=== PATIENT | male | born 1955 | race Caucasian/White ===

== ENCOUNTER → 2018-02-11 11:01 | Outpatient (CLI) | payer BC, SELFPAY ==
[2018-02-11 12:56] LABS: Urine Drug scr, USCG NIDA See Separate Report
== END ==
PROVIDERS: PCP Internal Medicine; Visit Provider Internal Medicine
DX: Z02.3 Encounter for examination for recruitment to armed forces (principal)
CPT/HCPCS: 81099

== ENCOUNTER → 2018-02-13 11:51 | Outpatient (CLI) | payer BC, SELFPAY ==
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
== END ==
PROVIDERS: PCP Internal Medicine; Visit Provider Internal Medicine
DX: S99.911A Unspecified injury of right ankle, initial encounter (principal); S69.92XA Unspecified injury of left wrist, hand and finger(s), initial encounter; M79.89 Other specified soft tissue disorders; M25.471 Effusion, right ankle
CPT/HCPCS: 73130; 73610

== ENCOUNTER 2018-04-16 09:03 | Day surgery (SDC) | payer BC, SELFPAY ==
--- NOTE | 2018-04-16 | PATH_ITS ---
[facility] Accession Number: [id number] . 01 Material submitted: . SIGMOID COLON POLYP . 02 Diagnosis: Sigmoid Colon Polyp: Colonic mucosa with no diagnostic abnormality, consistent with polypoid redundancy. Negative for serrated lesion, dysplasia or malignancy. Additional step sections examined. MRV/04/18/2018 . 02 Electronically signed: . Ronny Johnson MD, PhD, Pathologist NPI- [id number] . 01 Gross description: . Received one formalin-filled container labeled with the patient's name and labeled sigmoid colon polyp. The specimen consists of a 0.3 cm portion of tissue, entirely submitted in one cassette. ([id number]) /FRR . 02 Pathologist provided ICD-10: K63.5 . 02 CPT . 028326 Performed at: 01 [facility] [address] [id number] MD John Arce MD Phone: [phone] Performed at: 02 [facility] [address] [place] [id number] MD Kaushik Breen MD Phone: [phone]
[2018-04-16] MEDS: SODIUM CHLORIDE 0.9% 1,000 ML 42 ML IV (09:16)
[2018-04-16 09:21] VITALS: BP 127/78; PULSE 61; RESP 18; TEMP 36.4; O2SAT 97; BMI 25.1
--- NOTE | 2018-04-16 09:48 | PM.HP.1 ---
History of Present Illness Date Patient Seen: 04/16/18 Time Patient Seen: 09:48 Chief complaint: [id number] Narrative: History of adenomatous colon polyps Patient History Family & Social History Social History: household members spouse Meds Allergies Allergy/AdvReac Type Severity Reaction Status Date / Time CODEINE Allergy Mild ITCHING Uncoded 04/16/18 09:15 Exam Vital Signs (past 8 hours): - 04/16/18 09:21 Temperature 97.6 F Pulse Rate 61 Respiratory Rate 18 Blood Pressure 127/78 Pulse Oximetry 97 Oxygen Delivery Method Room Air Narrative Exam Narrative: Oropharynx free of lesions Chest clear to auscultation percussion Cardiac exam reveals no S3 or murmur Assessment & Plan Plan: Assessment/Plan Narrative: Assessment: History of adenomatous colon polyps Plan: Follow-up colonoscopy. Risks benefits and alternatives have been explained.
[2018-04-16] MEDS: MIDAZOLAM 5 MG/5 ML VIAL IV (10:43)
[2018-04-16] MEDS: fentaNYL 250 MCG/5 ML INJ IV (10:44)
--- NOTE | 2018-04-16 10:49 | PM.OP.ENDO ---
Operative Date/Time/Diagnoses Date of procedure: 04/16/18 Time of procedure: 10:49 Pre-op diagnosis: See indication and findings Post-op diagnosis: same Procedure & Clinicians Study performed: Colonoscopy Same procedure as scheduled: Yes Indications: Screening Surgeon: Sorin Clark Procedure Notes Procedure in detail: Sedation: Fentanyl 100 mcg Versed 5 mg IV titration Total sedation time 20 min After informed consent was obtained the patient was placed in the left lateral decubitus position. The video colonoscope was introduced to the rectum slowly advanced to the cecum. On slow withdrawal mucosa was carefully examined. The preparation was excellent. The scope was removed. The patient tolerated the procedure well. Blood loss none Complications none Findings 1. 3-4 mm polyp in the sigmoid colon Jumbo biopsy and removed completely 2. Otherwise negative colonoscopy to cecum We will be in touch the patient regarding pathology results and how this impacts of follow-up in either 5 years or 10 years.
[2018-04-16 11:00] VITALS: BP 96/63; PULSE 60; RESP 15; TEMP 36.8; O2SAT 96
[2018-04-16 11:09] VITALS: BP 103/66; PULSE 55; RESP 15; TEMP 36.6; O2SAT 99
[2018-04-16 11:15] VITALS: BP 110/71; PULSE 63; RESP 18; O2SAT 99
--- NOTE | 2018-04-16 11:23 | SUR.PHASEII ---
pt awake and alert. pt drank 2 juices. denies any complaints. pt states he feels fine and is ready to go home. pt d/[place] in wheelchair with .
== END 2018-04-16 11:20 | disposition home or self-care (01) ==
PROVIDERS: PCP Internal Medicine; Visit Provider Internal Medicine Gastroenterology
PROC: 0DJD8ZZ Inspection of Lower Intestinal Tract, Via Natural or Artificial Opening Endoscopic (ICD-10-PCS; CPT 45378; principal; 2018-04-16 10:00)
DX: Z86.010 Personal history of colon polyps (principal); D12.5 Benign neoplasm of sigmoid colon
CPT/HCPCS: 45380; J2250; J3010

== ENCOUNTER → 2021-08-08 07:50 | Outpatient (CLI) | payer OTHER, SELFPAY ==
--- NOTE | 2021-08-08 | DI.MRI.S_ITS ---
PROCEDURE: MR LUMBAR SPINE WO CON INDICATIONS: SPINAL STENOSIS TECHNIQUE: Noncontrast sagittal T1 spin echo and T2 fast echo, sagittal STIR, axial T1 and T2 fast spin echo through the lumbar spine. In cases with scoliosis, additional coronal T2 fast spin echo may be performed. COMPARISON: [facility], CR, L-SPINE 2-3 VIEWS, 04/16/2011, 7:33. [facility], MR, L-SPINE WITHOUT CONTRAST, 04/24/2011, 16:39. FINDINGS: Image quality: Excellent. Alignment and Curvature: There is minimal retrolisthesis again seen at the L2-L3 level. Bone Marrow: Marrow is of normal overall signal. No acute vertebral body compression fractures. Spinal Cord: Conus medullaris terminates at the L1 level. Visualized cord demonstrates normal signal and size. Paraspinous Soft Tissues: No paravertebral masses. This patient has transitional lumbar anatomy. For the purposes of this examination, the level with the last well-developed disc space is considered to be L5-S1. By this numbering scheme, there are tiny vestigial ribs seen at the T12 level. The L5 level is partially sacralized. T12-L1: No significant abnormality is seen. The disc height and disc signal are relatively well preserved. Mild generalized disc bulge is seen. Moderate facet joint hypertrophy is seen. Moderate bilateral neural foraminal narrowing is seen. Moderate central canal narrowing is seen. There is mild progression of degenerative change compared to 2011. L1-L2: The disc height is well-preserved. Loss of disc signal is seen at this level. There is a focal annular fissure seen posteriorly. Moderate generalized disc bulge is seen. There is a superimposed central disc protrusion. Moderate facet joint hypertrophy is seen. Moderate bilateral neural foraminal narrowing can be seen, left worse than right. Moderate central canal narrowing is seen. When comparison is made with the prior images, these findings are similar. L2-L3: Mild loss of disc height is seen. Loss of disc signal is seen. Moderate generalized disc bulge is seen. There is a superimposed central disc protrusion. There is a focal annular fissure seen posteriorly. Moderate facet joint hypertrophy is seen. There is moderate right-sided and at least moderate left-sided neural foraminal narrowing. Moderate central canal narrowing is seen. Compared to 2011, these imaging findings are similar. L3-L4: The disc height is well-preserved. Loss of disc signal is seen at this level. Moderate generalized disc bulge is seen. There is a superimposed central disc protrusion. Moderate facet joint hypertrophy is seen. There is moderate left-sided and moderate to severe right-sided neural foraminal narrowing. There is a mild degree of compression seen upon the exiting right L3 nerve root. Moderate central canal narrowing is seen. Mild progression compared to 2011. L4-L5: The disc height is well-preserved. Loss of disc signal is seen at this level. Moderate generalized disc bulge is seen. There is a superimposed central disc protrusion. Mild to moderate facet hypertrophy is seen. There is at least moderate bilateral neural foraminal narrowing seen. Mild to moderate central canal narrowing is seen. There is slight progression of degenerative change compared to 2011. L5-S1: The disc height and disc signal are overall well preserved. Mild generalized disc bulge is seen. Moderate facet joint hypertrophy is seen. No significant neural foraminal or central canal narrowing can be seen. No significant change from the prior. IMPRESSION: Multiple levels of lumbar spine degenerative change are seen, which are overall mildly progressed compared to the prior 2011 MRI examination. Dictated by: Ck Caraballo M.D. on 08/08/2021 at 11:42 Approved by: Ck Caraballo M.D. on 08/08/2021 at 11:48
== END ==
PROVIDERS: PCP Internal Medicine; Referring Provider Internal Medicine; Visit Provider Internal Medicine
DX: M48.062 Spinal stenosis, lumbar region with neurogenic claudication (principal); M47.816 Spondylosis without myelopathy or radiculopathy, lumbar region; M47.817 Spondylosis without myelopathy or radiculopathy, lumbosacral region
CPT/HCPCS: 72148

== ENCOUNTER → 2021-11-01 08:24 | Outpatient (CLI) | payer OTHER, SELFPAY ==
--- NOTE | 2021-11-01 08:25 | DI.RAD.S_ITS ---
PROCEDURE: XR LUMBAR SPINE MIN 4V INDICATIONS: BACK PAIN TECHNIQUE: 5 views of the lumbar spine were acquired, including bilateral oblique views. COMPARISON: [facility], , -SPINE 2-3 VIEWS, 04/16/2011, 7:33. FINDINGS: Bones: 5 nonrib-bearing vertebrae are present. There is normal bony alignment. No vertebral body compression fractures. No suspicious bony lesions. Mild degenerative disc changes noted throughout the lumbar spine. Mild L3-L4, L4-L5 and L5-S1 facet arthropathy. Soft tissues: Overlying bowel gas pattern is normal. No suspicious soft tissue calcifications. Oblique images: No pars defects. IMPRESSION: 1. Multilevel degenerative disc disease. 2. Multilevel facet arthropathy. 3. No fracture. No acute osseous lesion. If symptoms and/or clinical suspicion for pathology persists, evaluation with MRI should be considered for further assessment. Dictated by: Erika Lundberg MD, PhD on 11/01/2021 at 9:05 Approved by: Erika Lundberg MD, PhD on 11/01/2021 at 9:06
== END ==
PROVIDERS: PCP Registered Nurse; Referring Provider Physical Medicine & Rehabilitation; Visit Provider Physical Medicine & Rehabilitation
DX: M51.36 Other intervertebral disc degeneration, lumbar region (principal); M47.816 Spondylosis without myelopathy or radiculopathy, lumbar region; M47.817 Spondylosis without myelopathy or radiculopathy, lumbosacral region; M54.9 Dorsalgia, unspecified
CPT/HCPCS: 72110

== ENCOUNTER 2021-12-12 11:55 | Emergency (ER) | payer OTHER, SELFPAY ==
[2021-12-12 12:16] VITALS: BP 122/71; PULSE 60; RESP 16; TEMP 36.9; O2SAT 99; BMI 24.4
--- NOTE | 2021-12-12 12:18 | DI.RAD.S_ITS ---
PROCEDURE: XR WRIST LT MIN 3V INDICATIONS: fall TECHNIQUE: 4 views of the wrist were acquired. COMPARISON: None. FINDINGS: Bones: No fractures or dislocations. No suspicious bony lesions. Scaphoid view: Scaphoid is intact. Soft tissues: No suspicious soft tissue calcifications. IMPRESSION: No acute left wrist fracture or dislocation. Dictated by: North Atkins M.D. on 12/12/2021 at 13:04 Approved by: North Atkins M.D. on 12/12/2021 at 13:05
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
== END 2021-12-12 13:56 | disposition home or self-care (01) ==
PROVIDERS: Emergency Provider Physician Assistant; PCP Registered Nurse
DX: S63.502A Unspecified sprain of left wrist, initial encounter (principal); S66.912A Strain of unspecified muscle, fascia and tendon at wrist and hand level, left hand, initial encounter; W01.0XXA Fall on same level from slipping, tripping and stumbling without subsequent striking against object, initial encounter
CPT/HCPCS: 73110; 99283

== ENCOUNTER → 2022-07-16 09:50 | Outpatient (CLI) | payer OTHER, SELFPAY ==
--- NOTE | 2022-07-16 | DI.RAD.S_ITS ---
PROCEDURE: XR WRIST LT MIN 3V INDICATIONS: Pain in left wrist TECHNIQUE: 4 views of the wrist were acquired. COMPARISON: [facility], , XR WRIST LT MIN 3V, 12/12/2021, 12:11. FINDINGS: Bones: No fractures or dislocations. No suspicious bony lesions. Scaphoid view: No visualized fracture. Soft tissues: No suspicious soft tissue calcifications. IMPRESSION: No visualized acute fracture or dislocation. However, if clinical concern and/or pain persist, short interval imaging followup in 7-10 days is recommended, as occult injury cannot be definitively excluded. Dictated by: Melissa Moreno M.D. on 07/16/2022 at 16:31 Approved by: Melissa Moreno M.D. on 07/16/2022 at 16:32
== END ==
PROVIDERS: PCP Registered Nurse; Referring Provider Registered Nurse; Visit Provider Registered Nurse
DX: M25.532 Pain in left wrist (principal)
CPT/HCPCS: 73110

== ENCOUNTER → 2024-08-18 15:20 | Outpatient (CLI) | payer MEDICARE, SELFPAY ==
--- NOTE | 2024-08-18 15:25 | DI.RAD.S_ITS ---
PROCEDURE: XR SHOULDER RT MIN 2V INDICATIONS: SHOULDER PAIN TECHNIQUE: 3 views of the shoulder were acquired. COMPARISON: None. FINDINGS: Bones: No fractures or dislocations. The humeral head is mildly high-riding. Hill-Sachs deformity is consistent with prior anterior shoulder dislocation. There is moderate glenohumeral joint space narrowing with marginal osteophytosis. Nhmo-uj-dvkeflac hypertrophic acromioclavicular arthropathy noted. No suspicious bony lesions. Visualized ribs appear intact. Soft tissues: No suspicious soft tissue calcifications. IMPRESSION: Degenerative change without evidence of acute osseous abnormality. Hill-Sachs deformity of the humeral head consistent with prior anterior shoulder dislocation. Dictated by: Daniel Cid M.D. on 08/18/2024 at 19:34 Approved by: Daniel Cid M.D. on 08/18/2024 at 19:36
== END ==
PROVIDERS: PCP Internal Medicine; Referring Provider Internal Medicine; Visit Provider Internal Medicine
DX: M19.011 Primary osteoarthritis, right shoulder (principal); M25.511 Pain in right shoulder
CPT/HCPCS: 73030

== ENCOUNTER 2025-06-10 14:44 | Outpatient (CLI) | payer MEDICARE, SELFPAY ==
[2025-06-10] VITALS (7 sets, daily range): BP systolic 112–133; BP diastolic 60–84; PULSE 53–60; RESP 16–96; O2SAT 96–100
[2025-06-10] MEDS: MIDAZOLAM 2 MG/2 ML VIAL IV (16:07)
--- NOTE | 2025-06-10 16:24 | P.PCN_ITS ---
Date/Time/Diagnoses Date of procedure: 06/10/25 Time of procedure: 16:24 Pre-procedure diagnosis: 1. FACET ARTHROPATHY Post-procedure diagnosis: same Procedure Notes Procedure: 1. Right L4, L5 and S1 MB BLOCKS LA Indications: John is referred by Dr. Wagoner for treatment of Right Axial LBP. Physician: Bijan Peña Total Fluoroscopy time (seconds): 5 Total sedation minutes: 10 Complications: none Procedure in detail & Post-procedure care: DESCRIPTION OF PROCEDURE Fluoroscopically guided, contrast-controlled right L4, L5 and S1 medial branch blocks with 0.5cc of 0.5% Marcaine. Following review of allergy and review of potential side effects and complications, including, but not necessarily limited to, infection, allergic reaction, local tissue breakdown, nerve injury, paralysis, stroke and possible , the patient indicated that the patient understood and agreed to proceed. An informed consent document was signed by the patient, witnessed by a nurse, and placed in the patient's chart. After review of previous anaesthesic history and IV conscious sedation the patient was deemed safe to proceed with today?s procedure with IV conscious sedation as ASA class II designation. Safety time-out was performed to confirm patient ID, procedure to be performed and site of procedure. IV sedation was accomplished with a combination of 2mg of Versed was administered by the RN after DO order, titrated to patient comfort during the course of the procedure while the patient remained responsive to all verbal commands In the prone position, following sterile prep and drape of the lumbar region, the right L4, L5 and S1 anatomical location of the medial branch of the dorsal ramus was identified fluoroscopically. Subsequently an anesthetic skin wheal using 1% lidocaine solution was initiated at each of the anatomical spots. Subsequently then a 22-gauge 3.5-inch spinal needle was atraumatically introduced and advanced under fluoroscopic guidance at each of the corresponding sites at the right L4, L5 and S1 MB. After negative aspiration, 0.2 cc of Isovue 200 was injected, confirming placement without vascular or intrathecal uptake. Subsequently then 0.5 cc of 0.5% Marcaine solution was injected at each of the corresponding sites at the right L4, L5 and S1 medial branch locations. The patient tolerated the procedure well without signs or symptoms of complications. The procedure tolerated the procedure well without signs or symptoms of complications prior to transfer to the recovery area continued monitoring without incident. Post-procedure, the patient was monitored initiating provocative activities to measure the amount of relief from block of the facetogenic pain. The patient reported a VAS of 7 prior to the procedure and a post-procedure VAS of 1. It has been a pleasure to assist in the diagnostic and therapeutic care of your patient. POST OP INSTRUCTIONS The patient was provided with a Pain Log to complete over the next several hours and subsequent days prior to the patient's follow up with the ordering physician. If the patient has director of emergency nursing relief to the solution applied, then they may be a candidate for medial branch rhizotomy. The patient is aware, was provided, once again, with a Pain Log and will follow up with the referring physician for review and clinical correlation.
== END 2025-06-10 17:05 | disposition home or self-care (01) ==
LOC: RAD 14:45
PROVIDERS: PCP Internal Medicine; Referring Provider Physical Medicine & Rehabilitation; Visit Provider Physical Medicine & Rehabilitation
DX: M47.816 Spondylosis without myelopathy or radiculopathy, lumbar region (principal); M47.817 Spondylosis without myelopathy or radiculopathy, lumbosacral region
CPT/HCPCS: 64493; 64494; 99152; J2250